=== PATIENT | male | born 1955 | race Caucasian/White ===

== ENCOUNTER 2017-09-02 09:17 | Emergency (ER) | payer OTHER ==
--- NOTE | 2017-09-02 09:42 | ER Document Report ---
ED Medical Screen (RME) - General Chief Complaint: Dizziness Stated Complaint: BLOOD IN STOOL Time Seen by Provider: 09/02/17 09:20 Notes: Patient is a 62-year-old male who presents to the emergency department today with complaints of blood in the stool intermittently for the last week with associated dizziness. Patient states the blood is bright red. Patient has a history of hemorrhoids. Patient states he has slight intermittent abdominal pain with this. Patient denies any change in his dizziness with position. Patient is not on any blood thinning medications. I have greeted and performed a rapid initial assessment of this patient. A comprehensive ED assessment and evaluation of the patient, analysis of test results, and completion of the medical decision making process will be conducted by additional ED providers. Review of systems: Positive for dizziness, blood in stool, and abdominal pain. Negative for change in dizziness with position or usage of blood thinners. Physical Exam: General: Alert, appears well. HEENT: Normocephalic. Atraumatic. PERRLA. Extraocular movements intact. Oropharynx clear. Neck: Supple. Cardiovascular: Regular rate and rhythm. Respiratory: No respiratory distress. Abdominal: Normal Inspection. No distension. Extremities: Moves all four extremities. Neurological: Normal cognition. AAOx4. Normal speech. Psychological: Normal affect. Normal Mood. Skin: Warm. Dry. Normal color. TRAVEL OUTSIDE OF THE [place] IN LAST 30 DAYS: No - Related Data Allergies/Adverse Reactions: No Known Allergies Allergy (Verified 09/02/17 09:19) Past Medical History - Social History Chew tobacco use (# tins/day): No Frequency of alcohol use: None Drug Abuse: None Renal/ Medical History: Denies: Hx Peritoneal Dialysis Physical Exam - Vital signs Vitals: Temp Pulse Resp BP Pulse Ox 98.4 F 88 20 162/80 H 97 09/02/17 09:21 09/02/17 09:21 09/02/17 09:21 09/02/17 09:21 09/02/17 09:21 Course - Vital Signs Vital signs: Temp Pulse Resp BP Pulse Ox 98.4 F 88 20 162/80 H 97 09/02/17 09:21 09/02/17 09:21 09/02/17 09:21 09/02/17 09:21 09/02/17 09:21 Scribe Documentation - Scribe Written by Gerri:: Gerri Mahajan, 09/02/2017 0942 acting as scribe for :: [place]
[2017-09-02 10:12] LABS: ABSOLUTE BASOPHILS # (AUTO) 0.1 10^3/uL (0.0-0.2); ABSOLUTE EOSINOPHILS # (AUTO) 0.2 10^3/uL (0.0-0.6); ABSOLUTE LYMPHOCYTES (AUTO) 2.3 10^3/uL (0.5-4.7); ABSOLUTE MONOCYTES (AUTO) 0.7 10^3/uL (0.1-1.4); ABSOLUTE NEUT (AUTO) 5.4 10^3/uL (1.7-8.2); BASOPHILS % (AUTO) 0.6 % (0-2); EOSINOPHILS % (AUTO) 2.3 % (0-6); HEMATOCRIT 44.6 % (37.9-51.0); HEMOGLOBIN 15.6 g/dL (13.5-17.0); LYMPHOCYTES % (AUTO) 26.7 % (13-45); MEAN CORPUSCULAR HEMOGLOBIN 32.1 pg (27.0-33.4); MEAN CORPUSCULAR HGB CONC 34.9 g/dL (32.0-36.0); MEAN CORPUSCULAR VOLUME 92 fl (80-97); MONOCYTES % (AUTO) 8.3 % (3-13); PLATELET COUNT 249 10^3/uL (150-450); RED BLOOD COUNT 4.85 10^6/uL (4.35-5.55); RED CELL DISTRIBUTION WIDTH 13.2 % (11.5-14.0); SEGMENTED NEUTROPHILS % (AUTO) 62.1 % (42-78); TOTAL CELLS COUNTED % (AUTO) 100 %; WHITE BLOOD COUNT 8.6 10^3/uL (4.0-10.5)
[2017-09-02 10:25] LABS: ALANINE AMINOTRANSFERASE 50 U/L (21-72); ALBUMIN 4.5 g/dL (3.5-5.0); ALKALINE PHOSPHATASE 89 U/L (38-126); ANION GAP 13 (5-19); ASPARTATE AMINO TRANSFERASE 24 U/L (17-59); BILIRUBIN,DIRECT 0.3 mg/dL (0.0-0.4); BILIRUBIN,TOTAL 1.6 mg/dL (0.2-1.3); BLOOD UREA NITROGEN 13 mg/dL (7-20); CALCIUM 9.9 mg/dL (8.4-10.2); CARBON DIOXIDE 25 mmol/L (22-30); CHLORIDE 107 mmol/L (98-107); GLUCOSE 91 mg/dL (75-110); POTASSIUM 3.6 mmol/L (3.6-5.0); SODIUM 144.9 mmol/L (137-145); TOTAL PROTEIN 7.3 g/dL (6.3-8.2)
[2017-09-02 11:11] VITALS: BP 150/92
--- NOTE | 2017-09-02 12:01 | ER Document Report ---
ED General - General Chief Complaint: Dizziness Stated Complaint: BLOOD IN STOOL Time Seen by Provider: 09/02/17 09:20 Notes: 62-year-old male to emerge plane of bright red blood per rectum. States he has been having increased amounts of blood in his stool. Was a little dizzy but not at this time. Denies any abdominal pain. Was seen one prior time and was told that he had hemorrhoids. Has not been able to see a registered nurse post partum or surgeon due to financial issues. TRAVEL OUTSIDE OF THE [place] IN LAST 30 DAYS: No - Related Data Allergies/Adverse Reactions: No Known Allergies Allergy (Verified 09/02/17 09:19) Past Medical History - General Information source: Patient - Social History Smoking Status: Never Smoker Chew tobacco use (# tins/day): No Frequency of alcohol use: None Drug Abuse: None Lives with: Spouse/Significant other Family History: Reviewed & Not Pertinent Patient has suicidal ideation: No Patient has homicidal ideation: No - Medical History Medical History: Negative Renal/ Medical History: Denies: Hx Peritoneal Dialysis Surgical Hx: Other Past Surgical History: Reports: Hx Tonsillectomy Review of Systems - Review of Systems Constitutional: No symptoms reported EENT: No symptoms reported Cardiovascular: Dizziness. denies: Chest pain, Palpitations, Heart racing Respiratory: No symptoms reported Gastrointestinal: Rectal bleeding. denies: Abdominal pain, Diarrhea, Nausea, Vomiting Genitourinary: No symptoms reported Male Genitourinary: No symptoms reported Musculoskeletal: No symptoms reported Skin: No symptoms reported Hematologic/Lymphatic: No symptoms reported Neurological/Psychological: No symptoms reported Physical Exam - Vital signs Vitals: Temp Pulse Resp BP Pulse Ox 98.4 F 88 20 162/80 H 97 09/02/17 09:21 09/02/17 09:21 09/02/17 09:21 09/02/17 09:21 09/02/17 09:21 Interpretation: Normal - General General appearance: Appears well, Alert - HEENT Head: Normocephalic, Atraumatic Eyes: Normal Pupils: PERRL - Respiratory Respiratory status: No respiratory distress Chest status: Nontender Breath sounds: Normal Chest palpation: Normal - Cardiovascular Rhythm: Regular Heart sounds: Normal auscultation Murmur: No - Abdominal Inspection: Normal Distension: No distension Bowel sounds: Normal Tenderness: Nontender Organomegaly: No organomegaly - Rectal Tenderness: No Stool: Heme positive Hemorrhoids: No: External, Anal fissure, Mass Prostate: Normal - Back Back: Normal, Nontender - Extremities General upper extremity: Normal inspection, Nontender, Normal color, Normal ROM , Normal temperature General lower extremity: Normal inspection, Nontender, Normal color, Normal ROM , Normal temperature, Normal weight bearing. No: Chase's sign - Neurological Neuro grossly intact: Yes Cognition: Normal Orientation: AAOx4 Rowe Coma Scale Eye Opening: Spontaneous Raquel Coma Scale Verbal: Oriented Raquel Coma Scale Motor: Obeys Commands Rowe Coma Scale Total: 15 Speech: Normal Motor strength normal: LUE, RUE, LLE, RLE Sensory: Normal - Psychological Associated symptoms: Normal affect, Normal mood - Skin Skin Temperature: Warm Skin Moisture: Dry Skin Color: Normal Course - Re-evaluation Re-evalutation: 09/02/17 12:08 Patient has normal hemoglobin and hematocrit with occult positive stool with a negative rectal exam. Consult with Dr. Walker with gastroenterology. Patient needs colonoscopy which can be done at this time as an outpatient. Patient has limited financial resources. Having financial counselor speak with patient at this time. I have given him all the warning signs with worsening GI bleeding. Patient is to return immediately if he develops any dizziness, passing out, low blood pressure, worsening bleeding or any other concerns. Patient has been observed here for several hours and has been asymptomatic. 09/02/17 12:[address] Walker. He will try and follow patient up. I have given an order for outpatient endoscopies. Financial services are working with patient at this time to get him to care that he needs. 09/02/17 14:17 Laboratory 09/02/17 09/02/17 09/02/17 09:51 09:51 09:51 WBC 8.6 RBC 4.85 Hgb 15.6 Hct 44.6 MCV 92 MCH 32.1 MCHC 34.9 RDW 13.2 Plt Count 249 Seg Neutrophils % 62.1 Lymphocytes % 26.7 Monocytes % 8.3 Eosinophils % 2.3 Basophils % 0.6 Absolute Neutrophils 5.4 Absolute Lymphocytes 2.3 Absolute Monocytes 0.7 Absolute Eosinophils 0.2 Absolute Basophils 0.1 Sodium 144.9 Potassium 3.6 Chloride 107 Carbon Dioxide 25 Anion Gap 13 BUN 13 Creatinine 0.99 Est GFR ( Amer) > 60 Est GFR (Non-Af Amer) > 60 Glucose 91 Calcium 9.9 Total Bilirubin 1.6 H Direct Bilirubin 0.3 Neonat Total Bilirubin Not Reportable Neonat Direct Bilirubin Not Reportable Neonat Indirect Bili Not Reportable AST 24 ALT 50 Alkaline Phosphatase 89 Total Protein 7.3 Albumin 4.5 Stool Occult Blood Blood Type A POSITIVE Antibody Screen NEGATIVE 09/02/17 10:58 WBC RBC Hgb Hct MCV MCH MCHC RDW Plt Count Seg Neutrophils % Lymphocytes % Monocytes % Eosinophils % Basophils % Absolute Neutrophils Absolute Lymphocytes Absolute Monocytes Absolute Eosinophils Absolute Basophils Sodium Potassium Chloride Carbon Dioxide Anion Gap BUN Creatinine Est GFR ( Amer) Est GFR (Non-Af Amer) Glucose Calcium Total Bilirubin Direct Bilirubin Neonat Total Bilirubin Neonat Direct Bilirubin Neonat Indirect Bili AST ALT Alkaline Phosphatase Total Protein Albumin Stool Occult Blood POSITIVE Blood Type Antibody Screen - Vital Signs Vital signs: Temp Pulse Resp BP Pulse Ox 97.7 F 79 16 150/92 H 93 09/02/17 11:09 09/02/17 11:11 09/02/17 11:11 09/02/17 11:11 09/02/17 11:11 - Laboratory Result Diagrams: 09/02/17 09:51 09/02/17 09:51 Laboratory results interpreted by me: 09/02/17 09:51 Total Bilirubin 1.6 H Discharge - Discharge Clinical Impression: Rectal bleeding Condition: Good Disposition: HOME, SELF-CARE Instructions: Rectal Bleeding, Unclear Cause ([facility]) Additional Instructions: If you begin to develop worsening symptoms, worsening bleeding, dizziness, chest pain, low blood pressure or other concerns please return immediately. Please make appointments to follow-up with gastroenterology as advised. Forms: Follow-Up Outpatient Testing Referrals: KESHAWN ARAGON MD [ACTIVE STAFF] - Follow up in 3-5 days
--- NOTE | 2017-09-02 22:54 | EKG REPORT ---
SEVERITY:- OTHERWISE NORMAL ECG - SINUS RHYTHM LEFT AXIS DEVIATION : Confirmed by: Chon Dey 02-Sep-2017 22:53:46
== END 2017-09-02 12:31 | disposition home or self-care (01) ==
LOC: ER 09:17
DX: K62.5 Hemorrhage of anus and rectum (principal); R42 Dizziness and giddiness
CPT/HCPCS: 36415; 80053; 82272; 85025; 86850; 86900; 86901; 93005; 93010; 99284

== ENCOUNTER 2017-10-20 10:59 | Inpatient (IN) | payer OTHER ==
[2017-10-20] MEDS ORDERED: NORMAL SALINE 1000 ML 1,000 ML IV ONE (11:41)
--- NOTE | 2017-10-20 11:42 | ER Document Report ---
ED Medical Screen (RME) - General Chief Complaint: Abdominal Pain Stated Complaint: ABDOMINAL PAIN Time Seen by Provider: 10/20/17 11:39 Notes: 62 years old male presents today with 2 month history of rectal bleed, with gradual weakness to the point the last 24 hours feeling extremely weak and dizzy therefore presented to the ED. With diffuse lower abdominal discomfort/ pain. No nausea vomiting. Denies any dysuria frequency or urgency. Denies any constipation. Denies any other constitutional symptoms. He never had a colonoscopy done. He is adopted no family history. TRAVEL OUTSIDE OF THE [place] IN LAST 30 DAYS: No - Related Data Allergies/Adverse Reactions: No Known Allergies Allergy (Verified 10/20/17 11:03) Past Medical History Renal/ Medical History: Denies: Hx Peritoneal Dialysis Past Surgical History: Reports: Hx Tonsillectomy Physical Exam - Vital signs Vitals: Temp Pulse Resp BP Pulse Ox 98.1 F 98 18 125/81 96 10/20/17 11:06 10/20/17 11:06 10/20/17 11:06 10/20/17 11:06 10/20/17 11:06 Course - Vital Signs Vital signs: Temp Pulse Resp BP Pulse Ox 98.1 F 98 18 125/81 96 10/20/17 11:06 10/20/17 11:06 10/20/17 11:06 10/20/17 11:06 10/20/17 11:06
[2017-10-20 12:32] LABS: ABSOLUTE BASOPHILS # (AUTO) 0.1 10^3/uL (0.0-0.2); ABSOLUTE EOSINOPHILS # (AUTO) 0.4 10^3/uL (0.0-0.6); ABSOLUTE LYMPHOCYTES (AUTO) 1.1 10^3/uL (0.5-4.7); ABSOLUTE MONOCYTES (AUTO) 1.2 10^3/uL (0.1-1.4); BASOPHILS % (AUTO) 0.7 % (0-2); EOSINOPHILS % (AUTO) 4.1 % (0-6); HEMOGLOBIN 12.1 g/dL (13.5-17.0); LYMPHOCYTES % (AUTO) 10.8 % (13-45); MEAN CORPUSCULAR HEMOGLOBIN 30.2 pg (27.0-33.4); MEAN CORPUSCULAR HGB CONC 33.5 g/dL (32.0-36.0); MEAN CORPUSCULAR VOLUME 90 fl (80-97); MONOCYTES % (AUTO) 12.3 % (3-13); PLATELET COUNT 358 10^3/uL (150-450); RED BLOOD COUNT 3.99 10^6/uL (4.35-5.55); RED CELL DISTRIBUTION WIDTH 13.6 % (11.5-14.0); SEGMENTED NEUTROPHILS % (AUTO) 72.1 % (42-78); TOTAL CELLS COUNTED % (AUTO) 100 %; WHITE BLOOD COUNT 9.7 10^3/uL (4.0-10.5)
--- NOTE | 2017-10-20 13:00 | RADIOLOGY REPORT (SQ) ---
EXAM DESCRIPTION: ACUTE ABDOMEN SERIES COMPLETED DATE/TIME: 10/20/2017 12:37 pm REASON FOR STUDY: Abdominal pain COMPARISON: None. NUMBER OF VIEWS: Three views. TECHNIQUE: Frontal chest, supine abdomen and upright abdomen radiographic images acquired. LIMITATIONS: None. FINDINGS: CHEST: Calcified granuloma medial right upper lobe. Lungs are free of acute infiltrates. No pleural effusion. No pneumothorax. FREE AIR: None. No abnormal gas collections. BOWEL GAS PATTERN: Nonobstructive pattern. No dilated loops or air fluid levels. CALCIFICATIONS: No suspicious calcifications. HARDWARE: None in the abdomen. SOFT TISSUES: No gross mass or suggestion of organomegaly. BONES: No acute fracture. No worrisome bone lesions. OTHER: No other significant finding. IMPRESSION: NO RADIOGRAPHIC EVIDENCE FOR ACUTE ABDOMINAL DISEASE. TECHNICAL DOCUMENTATION: JOB ID: [id number] [employer]- All Rights Reserved Reading location - IP/workstation name: [email or web address]
[2017-10-20 16:06] LABS: ALANINE AMINOTRANSFERASE 59 U/L (21-72); ALBUMIN 3.4 g/dL (3.5-5.0); ALKALINE PHOSPHATASE 156 U/L (38-126); ANION GAP 14 (5-19); ASPARTATE AMINO TRANSFERASE 36 U/L (17-59); BILIRUBIN,DIRECT 0.6 mg/dL (0.0-0.4); BILIRUBIN,TOTAL 1.9 mg/dL (0.2-1.3); BLOOD UREA NITROGEN 12 mg/dL (7-20); CALCIUM 8.6 mg/dL (8.4-10.2); CARBON DIOXIDE 22 mmol/L (22-30); CHLORIDE 107 mmol/L (98-107); GLUCOSE 96 mg/dL (75-110); POTASSIUM 4.1 mmol/L (3.6-5.0); SODIUM 142.7 mmol/L (137-145); TOTAL PROTEIN 6.4 g/dL (6.3-8.2)
--- NOTE | 2017-10-20 16:21 | ER Document Report ---
ED GI/ - General Mode of Arrival: Ambulatory Information source: Patient TRAVEL OUTSIDE OF THE [place] IN LAST 30 DAYS: No <CAPRI OWENS - Last Filed: 10/20/17 19:02> <AMRKELL NEWMAN - Last Filed: 10/20/17 21:25> - General Chief Complaint: Abdominal Pain Stated Complaint: ABDOMINAL PAIN Time Seen by Provider: 10/20/17 11:39 Notes: 62-year-old male who presents to the emergency department today with complaints of rectal bleeding. Patient was seen here a few months ago for similar symptoms. At that time the patient was put in contact with social work to help pay for a colonoscopy. Patient states that unfortunately he has not yet had a colonoscopy. When he was here a few months ago his blood levels were normal. Patient states he has had intermittent rectal bleeding since then and has now had an increase in generalized weakness. (CAPRI OWENS) - Related Data Allergies/Adverse Reactions: No Known Allergies Allergy (Verified 10/20/17 11:03) Past Medical History - General Information source: Patient - Social History Smoking Status: Never Smoker Cigarette use (# per day): No Chew tobacco use (# tins/day): No Frequency of alcohol use: None Drug Abuse: None Lives with: Family Family History: Reviewed & Not Pertinent Patient has suicidal ideation: No Patient has homicidal ideation: No Renal/ Medical History: Denies: Hx Peritoneal Dialysis Past Surgical History: Reports: Hx Tonsillectomy <CAPRI OWENS - Last Filed: 10/20/17 19:02> Review of Systems - Review of Systems Constitutional: See HPI, Weakness EENT: No symptoms reported Cardiovascular: No symptoms reported Respiratory: No symptoms reported Gastrointestinal: See HPI, Rectal bleeding Genitourinary: No symptoms reported Male Genitourinary: No symptoms reported Musculoskeletal: No symptoms reported Skin: No symptoms reported, See HPI Hematologic/Lymphatic: No symptoms reported Neurological/Psychological: No symptoms reported -: Yes All other systems reviewed and negative <CAPRI OWENS - Last Filed: 10/20/17 19:02> Physical Exam <CAPRI OWENS - Last Filed: 10/20/17 19:02> <MARKELL NEWMAN - Last Filed: 10/20/17 21:25> - Vital signs Vitals: Temp Pulse Resp BP Pulse Ox 98.1 F 98 18 125/81 96 10/20/17 11:06 10/20/17 11:06 10/20/17 11:06 10/20/17 11:06 10/20/17 11:06 - Notes Notes: Physical Exam: General: Alert, appears well. HEENT: Normocephalic. Atraumatic. PERRL. Extraocular movements intact. Oropharynx clear. Neck: Supple. Non-tender. Respiratory: No respiratory distress. Clear and equal breath sounds bilaterally. Cardiovascular: Regular rate and rhythm. Abdominal: Normal Inspection. Non-tender. No distension. Resonant bowel sounds. Back: Non-tender. No deformity or step off. Extremities: Moves all four extremities. Upper extremities: Normal inspection. Normal ROM. Lower extremities: Normal inspection. No edema. Normal ROM. Neurological: Normal cognition. AAOx4. Normal speech. Psychological: Normal affect. Normal Mood. Skin: Warm. Dry. Normal color. (CAPRI OWENS) Course - Laboratory Result Diagrams: 10/20/17 12:16 10/20/17 15:33 <CAPRI OWENS - Last Filed: 10/20/17 19:02> - Laboratory Result Diagrams: 10/20/17 12:16 10/20/17 15:33 - Diagnostic Test Radiology reviewed: Image reviewed, Reports reviewed - Mild wall thickening in the sigmoid colon and rectum. <MARKELL NEWMAN - Last Filed: 10/20/17 21:25> - Vital Signs Vital signs: Temp Pulse Resp BP Pulse Ox 98.4 F 96 20 134/83 H 96 10/20/17 19:36 10/20/17 19:36 10/20/17 19:36 10/20/17 19:36 10/20/17 19:36 - Laboratory Laboratory results interpreted by ok: 10/20/17 10/20/17 12:16 15:33 RBC 3.99 L Hgb 12.1 L Hct 36.0 L Lymphocytes % 10.8 L Total Bilirubin 1.9 H Direct Bilirubin 0.6 H Alkaline Phosphatase 156 H Albumin 3.4 L Lipase 320.0 H Discharge <CAPRI OWENS - Last Filed: 10/20/17 19:02> - Discharge Admitting Provider: Hospitalist Unit Admitted: Telemetry <MARKELL NEWMAN - Last Filed: 10/20/17 21:25> - Discharge Clinical Impression: Rectal bleeding Anemia Qualifiers: Anemia type: unspecified type Qualified Code(s): D64.9 - Anemia, unspecified Condition: Stable Disposition: ADMITTED INPATIENT Scribe Attestation: 10/20/17 17:09 I personally performed the services described in the documentation, reviewed and edited the documentation which was dictated to the scribe in my presence, and it accurately records my words and actions. (MARKELL NEWMAN) Scribe Documentation - Scribe Written by Gerri:: Gerri Mahajan, 10/20/2017 194 acting as scribe for :: Irene <CAPRI OWENS - Last Filed: 10/20/17 19:02>
--- NOTE | 2017-10-20 19:28 | RADIOLOGY REPORT (SQ) ---
EXAM DESCRIPTION: CT ABD/PELVIS WITH IV ORAL COMPLETED DATE/TIME: 10/20/2017 7:12 pm REASON FOR STUDY: Chronic GI bleed, abdominal pain COMPARISON: None. TECHNIQUE: CT scan of the abdomen and pelvis performed using helical scanning technique with dynamic intravenous contrast injection. Oral contrast. Images reviewed with lung, soft tissue, and bone win dows. Reconstructed coronal and sagittal MPR images reviewed. Delayed images for evaluation of the ur inary system also acquired. All images stored on PACS. All CT scanners at this facility use dose modulation, iterative reconstruction, and/or weight based d osing when appropriate to reduce radiation dose to as low as reasonably achievable (ALARA). [facility]: Dose Right [facility]: CareDose [facility]: Dose Right [facility]: Teradose 4D [facility]: [place] CONTRAST TYPE AND DOSE: contrast/concentration: Isovue 350.00 mg/ml; Total Contrast Delivered: 86.0 ml; Total Saline Delivered: 42.0 ml RENAL FUNCTION: BUN 12 creatinine 1 RADIATION DOSE: CT Rad equipment meets quality standard of care and radiation dose reduction techniq ues were employed. CTDIvol: 10.1 - 14.3 mGy. DLP: 1273 mGy-cm.. LIMITATIONS: None. FINDINGS: LOWER CHEST: No significant findings. No nodules or infiltrates. LIVER: The liver is slightly hypoattenuating. No masses are present. SPLEEN: Normal size. No focal lesions. PANCREAS: No masses. No significant calcifications. No adjacent inflammation or peripancreatic fluid collections. Pancreatic duct not dilated. GALLBLADDER: No identified stones by CT criteria. No inflammatory changes to suggest cholecystitis. ADRENAL GLANDS: No significant masses or asymmetry. RIGHT KIDNEY AND URETER: No solid masses. No significant calcifications. No hydronephrosis or hyd roureter. LEFT KIDNEY AND URETER: No solid masses. No significant calcifications. No hydronephrosis or hydr oureter. AORTA AND VESSELS: No aneurysm. No dissection. Renal arteries, SMA, celiac without stenosis. RETROPERITONEUM: No retroperitoneal adenopathy, hemorrhage or masses. BOWEL AND PERITONEAL CAVITY: There appears to be mild wall thickening in the sigmoid colon and rectum . APPENDIX: Not identified. PELVIS: No mass. No free fluid. Normal bladder. ABDOMINAL WALL: No masses. No hernias. BONES: No significant or acute findings. OTHER: No other significant finding. IMPRESSION: 1. Mild fatty infiltration the liver. 2. Mild wall thickening in the sigmoid colon and rectum. Is there history of or clinical evidence o f inflammatory bowel disease? TECHNICAL DOCUMENTATION: JOB ID: [id number] Quality ID # [id number]: Final reports with documentation of one or more dose reduction techniques (e.g., Au tomated exposure control, adjustment of the mA and/or kV according to patient size, use of iterative reconstruction technique) 2010 [employer]- All Rights Reserved Reading location - IP/workstation name: [email or web address]
[2017-10-20] MEDS ORDERED: ACETAMINOPHEN 325 MG TABLET PO PRN (21:02)
[2017-10-20] MEDS ORDERED: DEXTROSE 40% GEL 15 GM TUBE PO PRN ×2 (21:02)
[2017-10-20] MEDS ORDERED: MAG HYDROX/AL HYDROX/SIMETH SUSP 30 ML UDCUP PO PRN (21:02)
[2017-10-20] MEDS ORDERED: DEXTROSE 50%-WATER 25 GM/50 ML DISP.SYRIN IV PRN ×2 (21:02)
[2017-10-20] MEDS ORDERED: GLUCAGON,HUMAN RECOMB 1 MG INJ SUBCUT PRN (21:02)
[2017-10-20] MEDS ORDERED: OXYCODONE-ACETAMINOPHEN 5-325 MG TABLET PO PRN (21:02)
[2017-10-20 22:03] LABS: HEMATOCRIT 34.4 % (37.9-51.0); HEMOGLOBIN 11.8 g/dL (13.5-17.0); MEAN CORPUSCULAR HGB CONC 34.3 g/dL (32.0-36.0); MEAN CORPUSCULAR VOLUME 90 fl (80-97); PLATELET COUNT 326 10^3/uL (150-450); RED BLOOD COUNT 3.81 10^6/uL (4.35-5.55); RED CELL DISTRIBUTION WIDTH 13.4 % (11.5-14.0); WHITE BLOOD COUNT 10.3 10^3/uL (4.0-10.5)
[2017-10-20] MEDS: PANTOPRAZOLE SODIUM 40 MG VIAL IV SCH (23:31)
[2017-10-20] MEDS: NORMAL SALINE 1000 ML 1,000 ML IV PRN (23:32)
--- NOTE | 2017-10-20 23:43 | PDOC H&P ---
History of Present Illness Admission Date/PCP: 10/20/17 20:40 Patient complains of: Rectal bleeding History of Present Illness: FLORIDA SHANNON is a 62 year old male with history of degenerative disc disease and chronic back pain who presented to the emergency room with acute onset of recurrent bright red bleeding per rectum which has been intermittent over the last couple months. His hemoglobin was 15.6 during an ER visit on 09/02/17 when he was advised to follow-up with Dr. Bowman however he did not. He admits to abdominal pain only with flatulence with bright red bleeding per rectum that occurred today with associated mild chills. He denies any melena, nausea or vomiting or heartburn. He denies any chest pain or dyspnea palpitations or headache or dizziness or blurred vision. No diarrhea. Upon arrival to the emergency room his blood pressure was 125/81 with a pulse of 98, respiratory rate of 18 and pulse oximetry 96% on room air. His labs are remarkable for mild anemia with hemoglobin and hematocrit of 12.1 and 36 and later on 11.8 and 34.4 comparable to previous levels and platelets where 326 and a serum lipase was 320 with alk phos 156 and albumin 3.4 with normal AST and ALT. Sodium was 142.7 with a potassium of 4.1, BUN of 12 and creatinine 0.96 with blood glucose of 96. Abdominal pelvic CT scan revealed mild thickening of the wall of the sigmoid colon and rectum. The patient will be admitted to a telemetry bed for further evaluation and management. Past Medical History Past Medical History: Degenerative disc disease with chronic back pain Endocrine Medical History: Reports: Diabetes Mellitus Type 2 Past Surgical History Past Surgical History: Reports: Tonsillectomy Social History Lives with: Family Smoking Status: Never Smoker Frequency of Alcohol Use: None Hx Recreational Drug Use: No Family History Family History: The patient is adopted Parental Family History Reviewed: No - The patient is adopted Children Family History Reviewed: NA Sibling(s) Family History Reviewed.: NA Medication/Allergy Home Medications: Cyclobenzaprine HCl [Flexeril 10 mg Tablet] 10 mg PO Q8 10/20/17 Meloxicam [Mobic] 15 mg PO DAILY 10/20/17 Allergies/Adverse Reactions: No Known Allergies Allergy (Verified 10/20/17 11:03) Review of Systems Review of Systems: As per history of present illness. All pertinent systems were reviewed above. Constitutional, HEENT, cardiovascular, respiratory, GI, , musculoskeletal, neuro, psychiatric, endocrine, integumentary and hematologic systems were reviewed and are otherwise negative/unremarkable except for positive findings mentioned above in the HPI. Physical Exam Vital Signs: Temp Pulse Resp BP Pulse Ox 98.4 F 96 20 134/83 H 96 10/20/17 19:36 10/20/17 19:36 10/20/17 19:36 10/20/17 19:36 10/20/17 19:36 Exam: Generally: Very pleasant elderly male in no acute distress. Vital signs-as listed Head - atraumatic, normocephalic. Pupils - equal, round and reactive to light and accommodation. Extraocular movements are intact. No scleral icterus. Mild conjunctival pallor. Oropharynx - moist mucous membranes and tongue. No pharyngeal erythema or exudate. Neck - supple. No JVD. Carotid pulses 2+ bilaterally. No carotid bruits. No palpable thyromegaly or lymphadenopathy. Cardiovascular - regular rate and rhythm. Normal S1 and S2. No murmurs, gallops or rubs. Lungs - clear to auscultation bilaterally. Abdomen - soft and nontender. Positive bowel sounds. No palpable organomegaly or masses. Extremities - no pitting edema, clubbing or cyanosis. Neuro - grossly non-focal. Skin - no rashes. and rectal exam - deferred. Results Laboratory Results: 10/20/17 21:50 10/20/17 21:50 WBC 10.3 RBC 3.81 L Hgb 11.8 L Hct 34.4 L MCV 90 MCH 31.0 MCHC 34.3 RDW 13.4 Plt Count 326 Impressions: Acute Abdomen Series 10/20/17 11:40 IMPRESSION: NO RADIOGRAPHIC EVIDENCE FOR ACUTE ABDOMINAL DISEASE. Abdomen/Pelvis CT 10/20/17 16:19 IMPRESSION: 1. Mild fatty infiltration the liver. 2. Mild wall thickening in the sigmoid colon and rectum. Is there history of or clinical evidence of inflammatory bowel disease? Assessment & Plan - Diagnosis (1) Rectal bleeding Is this a current diagnosis for this admission?: Yes Plan: The patient will be admitted to a telemetry bed. Will follow serial hemoglobin and hematocrit levels. A GI consultation to Dr. Thurman will be obtained in a.m. We will place him on PPI therapy for now (2) Acute blood loss anemia Is this a current diagnosis for this admission?: Yes Plan: At this time he does not need packed RBC transfusion especially that the H&H have been relatively stable. We will continue monitoring as mentioned above. (3) Elevated lipase Is this a current diagnosis for this admission?: Yes Plan: This could be related to his mild sigmoid colitis and his GI bleeding. Repeat serum lipase in a.m. The patient will be n.p.o. (4) Elevated LFTs Is this a current diagnosis for this admission?: Yes Plan: Given his elevated lipase levels feel we will obtain right upper quadrant ultrasound (5) Chronic back pain Is this a current diagnosis for this admission?: Yes Plan: No current worsening. We will have to stop his meloxicam given his GI bleeding. (6) DVT prophylaxis Is this a current diagnosis for this admission?: Yes Plan: Medical prophylaxis currently contraindicated due to GI bleeding. We will place him on a SCDs. GI prophylaxis with PPI therapy as mentioned above - Plan Summary Plan Summary: The plan of care was discussed in details with the patient. I answered all questions. The patient agreed to proceed with the above-mentioned plan. The patient is presumably full code. This note was created by [employer] software and may contain typo errors that may have not been proofread.
[2017-10-21] MEDS ORDERED: CIPROFLOXACIN 400 MG/D5W RTU 400 MG/200 ML RTUPB IV ONE (02:00)
[2017-10-21] MEDS: METRONIDAZOLE 500 MG/NS RTU 500 MG/100 ML RTUPB IV SCH ×3 (02:57→17:59)
[2017-10-21 04:25] LABS: ANION GAP 9 (5-19); BLOOD UREA NITROGEN 10 mg/dL (7-20); CALCIUM 7.7 mg/dL (8.4-10.2); CARBON DIOXIDE 24 mmol/L (22-30); CHLORIDE 106 mmol/L (98-107); GLUCOSE 106 mg/dL (75-110); POTASSIUM 3.4 mmol/L (3.6-5.0); SODIUM 139.1 mmol/L (137-145)
[2017-10-21 04:48] LABS: ABSOLUTE EOSINOPHILS # (AUTO) 0.1 10^3/uL (0.0-0.6); ABSOLUTE LYMPHOCYTES (AUTO) 0.8 10^3/uL (0.5-4.7); ABSOLUTE MONOCYTES (AUTO) 1.4 10^3/uL (0.1-1.4); ABSOLUTE NEUT (AUTO) 9.1 10^3/uL (1.7-8.2); BASOPHILS % (AUTO) 0.4 % (0-2); EOSINOPHILS % (AUTO) 0.9 % (0-6); HEMATOCRIT 31.2 % (37.9-51.0); HEMOGLOBIN 10.8 g/dL (13.5-17.0); MEAN CORPUSCULAR HEMOGLOBIN 30.8 pg (27.0-33.4); MEAN CORPUSCULAR HGB CONC 34.5 g/dL (32.0-36.0); MEAN CORPUSCULAR VOLUME 89 fl (80-97); MONOCYTES % (AUTO) 12.4 % (3-13); PLATELET COUNT 284 10^3/uL (150-450); RED CELL DISTRIBUTION WIDTH 13.3 % (11.5-14.0); SEGMENTED NEUTROPHILS % (AUTO) 79.3 % (42-78); TOTAL CELLS COUNTED % (AUTO) 100 %; WHITE BLOOD COUNT 11.5 10^3/uL (4.0-10.5)
--- NOTE | 2017-10-21 09:08 | PDOC CONSULTATION ---
Consultation Consult Date: 10/21/17 Attending physician:: KESHAWN ARAGON Consult reason:: abnormal CT scan. rectal bleeding. acute blood loss History of Present Illness Admission Date/PCP: 10/20/17 20:40 History of Present Illness: [place]OR[place] SHANNON is a 62 year old male patient presented to ED had a previous presentation 2 months ago stable at that time had rectal bleeding was advised to follow up with GI did not make appt now similar presentation has had abnormal CT scan admitted under the hospitalist service patient will need colonoscopy Past Medical History Cardiac Medical History: Reports: Coronary Artery Disease - Status post PCI and 11 stents Endocrine Medical History: Reports: Diabetes Mellitus Type 2 Past Surgical History Past Surgical History: Reports: Tonsillectomy Social History Lives with: Family Smoking Status: Never Smoker Frequency of Alcohol Use: None Hx Recreational Drug Use: No Family History Family History: Reviewed & Not Pertinent Parental Family History Reviewed: Yes Children Family History Reviewed: Unknown Sibling(s) Family History Reviewed.: Unknown Medication/Allergy Home Medications: Cyclobenzaprine HCl [Flexeril 10 mg Tablet] 10 mg PO Q8 10/20/17 Meloxicam [Mobic] 15 mg PO DAILY 10/20/17 Allergies/Adverse Reactions: No Known Allergies Allergy (Verified 10/20/17 11:03) Review of Systems Constitutional: ABSENT: fever(s), headache(s), night sweats, weakness Eyes: ABSENT: visual disturbances Ears: ABSENT: hearing changes Nose, Mouth, and Throat: ABSENT: mouth pain, sore throat Cardiovascular: ABSENT: edema, orthropnea Respiratory: ABSENT: dyspnea, hemoptysis Gastrointestinal: PRESENT: hematochezia. ABSENT: hematemesis Genitourinary: ABSENT: dysuria, hematuria Musculoskeletal: ABSENT: deformity, joint swelling Integumentary: ABSENT: lesions, pruritus Neurological: ABSENT: syncope, tingling, tremor(s), vertigo Endocrine: ABSENT: polydipsia, polyphagia, polyuria Hematologic/Lymphatic: ABSENT: easy bruising Physical Exam Vital Signs: Temp Pulse Resp BP Pulse Ox 98.6 F 96 20 134/83 H 96 10/21/17 01:57 10/20/17 19:36 10/20/17 19:36 10/20/17 19:36 10/20/17 19:36 Intake & Output 10/20/17 10/21/17 10/22/17 06:59 06:59 06:59 Intake Total 597 Balance 597 General appearance: PRESENT: no acute distress, well-developed, well-nourished Head exam: PRESENT: atraumatic, normocephalic Eye exam: PRESENT: EOMI, PERRLA. ABSENT: nystagmus, periorbital swelling, scleral icterus Mouth exam: PRESENT: moist, neck supple Throat exam: ABSENT: tonsillar exudate, tonsillogmegaly Neck exam: ABSENT: meningismus, tenderness, thyromegaly Respiratory exam: PRESENT: symmetrical, unlabored. ABSENT: tachypnea, wheezes Cardiovascular exam: PRESENT: RRR, +S1, +S2 GI/Abdominal exam: PRESENT: soft. ABSENT: rebound, rigid, tenderness Extremities exam: ABSENT: joint swelling Musculoskeletal exam: PRESENT: full ROM Neurological exam: PRESENT: alert, oriented to time, oriented to situation Focused psych exam: ABSENT: restlessness Skin exam: PRESENT: normal color. ABSENT: mottled, urticaria, vesicles Results Laboratory Results: 10/21/17 04:25 10/21/17 04:00 10/20/17 10/21/17 10/21/17 21:50 04:00 04:00 WBC 10.3 Cancelled RBC 3.81 L Cancelled Hgb 11.8 L Cancelled Hct 34.4 L Cancelled MCV 90 Cancelled MCH 31.0 Cancelled MCHC 34.3 Cancelled RDW 13.4 Cancelled Plt Count 326 Cancelled Seg Neutrophils % Cancelled Lymphocytes % Cancelled Monocytes % Cancelled Eosinophils % Cancelled Basophils % Cancelled Absolute Neutrophils Cancelled Absolute Lymphocytes Cancelled Absolute Monocytes Cancelled Absolute Eosinophils Cancelled Absolute Basophils Cancelled Sodium 139.1 Potassium 3.4 L Chloride 106 Carbon Dioxide 24 Anion Gap 9 BUN 10 Creatinine 1.01 Est GFR ( Amer) > 60 Est GFR (Non-Af Amer) > 60 Glucose 106 Calcium 7.7 L Stool Occult Blood 10/21/17 10/21/17 04:25 04:55 WBC 11.5 H RBC 3.50 L Hgb 10.8 L Hct 31.2 L MCV 89 MCH 30.8 MCHC 34.5 RDW 13.3 Plt Count 284 Seg Neutrophils % 79.3 H Lymphocytes % 7.0 L Monocytes % 12.4 Eosinophils % 0.9 Basophils % 0.4 Absolute Neutrophils 9.1 H Absolute Lymphocytes 0.8 Absolute Monocytes 1.4 Absolute Eosinophils 0.1 Absolute Basophils 0.0 Sodium Potassium Chloride Carbon Dioxide Anion Gap BUN Creatinine Est GFR ( Amer) Est GFR (Non-Af Amer) Glucose Calcium Stool Occult Blood POSITIVE Impressions: Acute Abdomen Series 10/20/17 11:40 IMPRESSION: NO RADIOGRAPHIC EVIDENCE FOR ACUTE ABDOMINAL DISEASE. Abdomen/Pelvis CT 10/20/17 16:19 IMPRESSION: 1. Mild fatty infiltration the liver. 2. Mild wall thickening in the sigmoid colon and rectum. Is there history of or clinical evidence of inflammatory bowel disease? Assessment & Plan - Diagnosis (1) Abnormal CT scan, colon Plan: thickening in the sigmoid and rectum ? colitis will need colonoscopy Risks, benefits and alternatives are discussed with the patient further recommendations to follow (2) Acute blood loss anemia Is this a current diagnosis for this admission?: Yes Plan: could be due to bleeding, although a chronic anemia may be co-existing transfuse as necessary (3) Rectal bleeding Is this a current diagnosis for this admission?: Yes Plan: will need evaluation of cause further recommendations to follow - Time Time Spent: 50 to 70 Minutes
[2017-10-21 11:42] LABS: HEMOGLOBIN 10.5 g/dL (13.5-17.0); MEAN CORPUSCULAR HEMOGLOBIN 31.3 pg (27.0-33.4); MEAN CORPUSCULAR VOLUME 89 fl (80-97); PLATELET COUNT 294 10^3/uL (150-450); RED BLOOD COUNT 3.36 10^6/uL (4.35-5.55); RED CELL DISTRIBUTION WIDTH 13.2 % (11.5-14.0); WHITE BLOOD COUNT 10.7 10^3/uL (4.0-10.5)
[2017-10-21] MEDS: CIPROFLOXACIN 400 MG/D5W RTU 400 MG/200 ML RTUPB IV SCH ×2 (11:47→21:28)
[2017-10-21] MEDS: PANTOPRAZOLE SODIUM 40 MG VIAL IV SCH ×2 (13:53→21:28)
[2017-10-21 16:39] LABS: HEMATOCRIT 29.6 % (37.9-51.0); HEMOGLOBIN 10.3 g/dL (13.5-17.0); MEAN CORPUSCULAR HEMOGLOBIN 31.2 pg (27.0-33.4); MEAN CORPUSCULAR HGB CONC 34.9 g/dL (32.0-36.0); MEAN CORPUSCULAR VOLUME 90 fl (80-97); PLATELET COUNT 290 10^3/uL (150-450); RED BLOOD COUNT 3.31 10^6/uL (4.35-5.55); RED CELL DISTRIBUTION WIDTH 13.3 % (11.5-14.0); WHITE BLOOD COUNT 8.9 10^3/uL (4.0-10.5)
[2017-10-21] MEDS: NORMAL SALINE 1000 ML 1,000 ML IV PRN (16:51)
--- NOTE | 2017-10-21 18:00 | RADIOLOGY REPORT (SQ) ---
EXAM DESCRIPTION: U/S ABDOMEN LIMITED W/O DOP COMPLETED DATE/TIME: 10/21/2017 5:51 pm REASON FOR STUDY: ELEVATED LFTS AND LIPASE (LIVER, gb , pancreas) COMPARISON: CT dated 10/20/2017. TECHNIQUE: Dynamic and static grayscale images acquired of the right upper quadrant and recorded on PACS. Additional selected color Doppler and spectral images recorded. LIMITATIONS: Study limited due to acoustical interference from fat or from air in the bowel. FINDINGS: PANCREAS: Obscured. LIVER: Echotexture is coarse with increased echogenicity consistent with fatty infiltration. No mass es. LIVER VASCULATURE: Normal directional flow of the main portal vein and hepatic veins. GALLBLADDER: No stones. Normal wall thickness. No pericholecystic fluid. ULTRASOUND-DETECTED SAUNDERS'S SIGN: Negative. INTRAHEPATIC DUCTS AND COMMON DUCT: CBD and intrahepatic ducts normal caliber. No filling defects. INFERIOR VENA CAVA: Normal flow. AORTA: Partially obscured. RIGHT KIDNEY: Normal size. Normal echogenicity. No solid or suspicious masses. No hydronephros is. No calcifications. PERITONEAL CAVITY AND RIGHT PLEURAL SPACE: No ascites or effusions. OTHER: No other significant finding. IMPRESSION: FATTY LIVER. PANCREAS AND ABDOMINAL AORTA OBSCURED. OTHERWISE NORMAL RIGHT UPPER QUADRAN T ULTRASOUND. TECHNICAL DOCUMENTATION: JOB ID: [id number] [employer]- All Rights Reserved Reading location - IP/workstation name: [email or web address]
--- NOTE | 2017-10-21 18:55 | PDOC PROGRESS REPORT ---
Subjective Progress Note for:: 10/21/17 Subjective:: As any abdominal pain nausea vomiting. He is not sure if he is still having bloody bowel movement Reason For Visit: GI BLEEDING Physical Exam Vital Signs: Temp Pulse Resp BP Pulse Ox 98.7 F 83 16 107/68 95 10/21/17 16:08 10/21/17 16:59 10/21/17 16:08 10/21/17 16:08 10/21/17 16:08 Intake & Output 10/20/17 10/21/17 10/22/17 06:59 06:59 06:59 Intake Total 597 903 Balance 597 903 Weight 80 kg General appearance: PRESENT: no acute distress, well-developed, well-nourished Head exam: PRESENT: atraumatic, normocephalic Eye exam: PRESENT: conjunctiva pink, EOMI, PERRLA. ABSENT: scleral icterus Ear exam: PRESENT: normal external ear exam Mouth exam: PRESENT: moist, tongue midline Neck exam: ABSENT: carotid bruit, JVD, lymphadenopathy, thyromegaly Respiratory exam: PRESENT: clear to auscultation chaka. ABSENT: rales, rhonchi, wheezes Cardiovascular exam: PRESENT: RRR. ABSENT: diastolic murmur, rubs, systolic murmur Pulses: PRESENT: normal dorsalis pedis pul Vascular exam: PRESENT: normal capillary refill GI/Abdominal exam: PRESENT: normal bowel sounds, soft. ABSENT: distended, guarding, mass, organolmegaly, rebound, tenderness Rectal exam: PRESENT: deferred Extremities exam: PRESENT: full ROM. ABSENT: calf tenderness, clubbing, pedal edema Neurological exam: PRESENT: alert, awake, oriented to person, oriented to place , oriented to time, oriented to situation, CN II-XII grossly intact. ABSENT: motor sensory deficit Psychiatric exam: PRESENT: appropriate affect, normal mood. ABSENT: homicidal ideation, suicidal ideation Skin exam: PRESENT: dry, intact, warm. ABSENT: cyanosis, rash Results Laboratory Results: 10/21/17 16:25 10/21/17 04:00 10/20/17 10/21/17 10/21/17 21:50 04:00 04:00 WBC 10.3 Cancelled RBC 3.81 L Cancelled Hgb 11.8 L Cancelled Hct 34.4 L Cancelled MCV 90 Cancelled MCH 31.0 Cancelled MCHC 34.3 Cancelled RDW 13.4 Cancelled Plt Count 326 Cancelled Seg Neutrophils % Cancelled Lymphocytes % Cancelled Monocytes % Cancelled Eosinophils % Cancelled Basophils % Cancelled Absolute Neutrophils Cancelled Absolute Lymphocytes Cancelled Absolute Monocytes Cancelled Absolute Eosinophils Cancelled Absolute Basophils Cancelled Sodium 139.1 Potassium 3.4 L Chloride 106 Carbon Dioxide 24 Anion Gap 9 BUN 10 Creatinine 1.01 Est GFR ( Amer) > 60 Est GFR (Non-Af Amer) > 60 Glucose 106 Calcium 7.7 L Stool Occult Blood 10/21/17 10/21/17 10/21/17 04:25 04:55 11:01 WBC 11.5 H 10.7 H RBC 3.50 L 3.36 L Hgb 10.8 L 10.5 L Hct 31.2 L 30.0 L MCV 89 89 MCH 30.8 31.3 MCHC 34.5 35.0 RDW 13.3 13.2 Plt Count 284 294 Seg Neutrophils % 79.3 H Lymphocytes % 7.0 L Monocytes % 12.4 Eosinophils % 0.9 Basophils % 0.4 Absolute Neutrophils 9.1 H Absolute Lymphocytes 0.8 Absolute Monocytes 1.4 Absolute Eosinophils 0.1 Absolute Basophils 0.0 Sodium Potassium Chloride Carbon Dioxide Anion Gap BUN Creatinine Est GFR ( Amer) Est GFR (Non-Af Amer) Glucose Calcium Stool Occult Blood POSITIVE 10/21/17 16:25 WBC 8.9 RBC 3.31 L Hgb 10.3 L Hct 29.6 L MCV 90 MCH 31.2 MCHC 34.9 RDW 13.3 Plt Count 290 Seg Neutrophils % Lymphocytes % Monocytes % Eosinophils % Basophils % Absolute Neutrophils Absolute Lymphocytes Absolute Monocytes Absolute Eosinophils Absolute Basophils Sodium Potassium Chloride Carbon Dioxide Anion Gap BUN Creatinine Est GFR ( Amer) Est GFR (Non-Af Amer) Glucose Calcium Stool Occult Blood Impressions: Acute Abdomen Series 10/20/17 11:40 IMPRESSION: NO RADIOGRAPHIC EVIDENCE FOR ACUTE ABDOMINAL DISEASE. Abdomen/Pelvis CT 10/20/17 16:19 IMPRESSION: 1. Mild fatty infiltration the liver. 2. Mild wall thickening in the sigmoid colon and rectum. Is there history of or clinical evidence of inflammatory bowel disease? Assessment & Plan - Diagnosis (1) Abnormal CT scan, colon Is this a current diagnosis for this admission?: Yes Plan: Likely colitis. He will benefit from colonoscopy (2) Anemia Qualifiers: Anemia type: unspecified type Qualified Code(s): D64.9 - Anemia, unspecified Is this a current diagnosis for this admission?: Yes Plan: Hemoglobin has been relatively stable although trending down somewhat. There is no need for transfusion at this time (3) Elevated LFTs Is this a current diagnosis for this admission?: Yes (4) Rectal bleeding Is this a current diagnosis for this admission?: Yes Plan: Plan is for colonoscopy for further evaluation - Time Time Spent with patient: 15-24 minutes Medications reviewed and adjusted accordingly: Yes Anticipated discharge: Home Within: within 48 hours - Inpatient Certification Based on my medical assessment, after consideration of the patient's comorbidities, presenting symptoms, or acuity I expect that the services needed warrant INPATIENT care.: Yes Medical Necessity: Need Close Monitoring Due to Risk of Patient Decompensation, Risk of Complication if Not Cared For in Hospital
[2017-10-21] MEDS ORDERED: PEG 3350/NA SULF,BICARB,CL/KCL 4000 ML PO ONE (20:00)
[2017-10-22] MEDS: METRONIDAZOLE 500 MG/NS RTU 500 MG/100 ML RTUPB IV SCH ×3 (02:06→17:12)
[2017-10-22 06:34] LABS: ABSOLUTE EOSINOPHILS # (AUTO) 0.1 10^3/uL (0.0-0.6); ABSOLUTE LYMPHOCYTES (AUTO) 0.7 10^3/uL (0.5-4.7); ABSOLUTE MONOCYTES (AUTO) 1.3 10^3/uL (0.1-1.4); ABSOLUTE NEUT (AUTO) 6.4 10^3/uL (1.7-8.2); BASOPHILS % (AUTO) 0.5 % (0-2); EOSINOPHILS % (AUTO) 1.1 % (0-6); HEMATOCRIT 29.9 % (37.9-51.0); HEMOGLOBIN 10.4 g/dL (13.5-17.0); LYMPHOCYTES % (AUTO) 8.7 % (13-45); MEAN CORPUSCULAR HEMOGLOBIN 30.9 pg (27.0-33.4); MEAN CORPUSCULAR HGB CONC 34.9 g/dL (32.0-36.0); MEAN CORPUSCULAR VOLUME 88 fl (80-97); MONOCYTES % (AUTO) 15.5 % (3-13); PLATELET COUNT 281 10^3/uL (150-450); RED BLOOD COUNT 3.38 10^6/uL (4.35-5.55); RED CELL DISTRIBUTION WIDTH 13.5 % (11.5-14.0); SEGMENTED NEUTROPHILS % (AUTO) 74.2 % (42-78); TOTAL CELLS COUNTED % (AUTO) 100 %; WHITE BLOOD COUNT 8.6 10^3/uL (4.0-10.5)
[2017-10-22 06:55] LABS: ANION GAP 11 (5-19); BLOOD UREA NITROGEN 8 mg/dL (7-20); CALCIUM 8.1 mg/dL (8.4-10.2); CARBON DIOXIDE 22 mmol/L (22-30); CHLORIDE 106 mmol/L (98-107); GLUCOSE 93 mg/dL (75-110); POTASSIUM 3.4 mmol/L (3.6-5.0); SODIUM 138.8 mmol/L (137-145)
[2017-10-22] MEDS ORDERED: DIPHENHYDRAMINE HCL 50 MG/ML VIAL ONE (07:34)
[2017-10-22] MEDS ORDERED: ONDANSETRON HCL INJ/PF 4 MG/2 ML SDV ONE (07:34)
[2017-10-22] MEDS ORDERED: GLUCAGON,HUMAN RECOMB 1 MG INJ ONE (07:35)
[2017-10-22] MEDS ORDERED: NALOXONE HCL INJ/PF 0.4 MG/1 ML SDV ONE (07:35)
[2017-10-22] MEDS ORDERED: FLUMAZENIL INJ 0.5 MG/5 ML VIAL ONE (07:35)
[2017-10-22] MEDS ORDERED: EPINEPHRINE INJ 1 MG/10 ML DISP.SYRIN ONE (07:35)
[2017-10-22] MEDS: MIDAZOLAM 2 MG/2 ML INJ ONE ×2 (08:06→08:10)
[2017-10-22] MEDS: FENTANYL CITRATE INJ/PF 100 MCG/2 ML AMPUL ONE ×3 (08:08→08:14)
--- NOTE | 2017-10-22 08:43 | Operative Report ---
Operative Report DATE OF SURGERY: 10/22/17 Operative Report: The risks, benefits and alternatives of the procedure including risks of bleeding, perforation requiring surgery are explained to the patient in detail and informed consent is obtained. Patient is brought back to the endoscopy suite and placed in the left, lateral decubital position. Timeout was called. Conscious sedation medications are provided. A rectal examination is done which did not reveal any masses, tears or fissures. An Olympus videoscope was inserted into the patient's rectum. The scope was then carefully advanced all the way to the cecum. The cecum was identified by the usual anatomical landmarks including the ileocecal valve as well as the appendiceal office. Photodocumentation is obtained. The scope was sequentially pulled back via the various segments of the colon including the ascending colon, hepatic flexure, transverse colon, splenic flexure, descending colon and finally into the rectosigmoid portions of the colon. Retroflexion maneuvers performed. PREOPERATIVE DIAGNOSIS: Abnormal CT scan showing thickening of the sigmoid colon. Rectal bleeding POSTOPERATIVE DIAGNOSIS: Ulcerative colitis from 0 to approximately 50 cm consistent with ulcerative colitis status post biopsy. Colonoscopy completed to the cecum OPERATION: Colonoscopy with biopsy SURGEON: KESHAWN ARAGON ANESTHESIA: Moderate Sedation - 4 mg of Versed, 100 mcg of fentanyl. Conscious sedation monitoring time 30 minutes. TISSUE REMOVED OR ALTERED: As noted above. COMPLICATIONS: None. ESTIMATED BLOOD LOSS: None. INTRAOPERATIVE FINDINGS: As noted above. PROCEDURE: Patient tolerated the procedure well No immediate postprocedure complications are noted. Patient sent back to his room in good condition. Resume regular diet Resume regular activity level Resume medications. Stop mesalamine, 5 ASA compound. We will wait on biopsies Follow-up as outpatient
[2017-10-22] MEDS: CIPROFLOXACIN 400 MG/D5W RTU 400 MG/200 ML RTUPB IV SCH ×2 (09:19→21:13)
[2017-10-22] MEDS: PANTOPRAZOLE SODIUM 40 MG VIAL IV SCH (09:19)
[2017-10-22] MEDS: NORMAL SALINE 1000 ML 1,000 ML IV PRN (12:54)
[2017-10-22] MEDS ORDERED: POTASSIUM CHLORIDE 10 MEQ CAPSULE.ER PO ONE (13:00)
[2017-10-22] MEDS ORDERED: NORMAL SALINE 1000 ML 1,000 ML IV PRN (17:37)
--- NOTE | 2017-10-22 17:41 | PDOC PROGRESS REPORT ---
Subjective Progress Note for:: 10/22/17 Subjective:: Denies any abdominal pain nausea vomiting. He is still having bloody bowel movement however his H&H has been relatively stable. I went through the results of the colonoscopy with him and his again. Reason For Visit: GI BLEEDING Physical Exam Vital Signs: Temp Pulse Resp BP Pulse Ox 98.9 F 81 18 118/73 93 10/22/17 15:31 10/22/17 15:31 10/22/17 15:31 10/22/17 15:31 10/22/17 15:31 Intake & Output 10/21/17 10/22/17 10/23/17 06:59 06:59 06:59 Intake Total 597 1883 1809 Balance 597 1883 1809 Weight 81.8 kg General appearance: PRESENT: no acute distress Head exam: PRESENT: atraumatic, normocephalic Eye exam: PRESENT: conjunctiva pink, PERRLA. ABSENT: scleral icterus Ear exam: PRESENT: normal external ear exam Mouth exam: PRESENT: moist, tongue midline Neck exam: ABSENT: carotid bruit, JVD, lymphadenopathy, thyromegaly Respiratory exam: PRESENT: clear to auscultation chaka. ABSENT: rales, rhonchi, wheezes Cardiovascular exam: PRESENT: RRR. ABSENT: diastolic murmur, rubs, systolic murmur Pulses: PRESENT: normal dorsalis pedis pul Vascular exam: PRESENT: normal capillary refill GI/Abdominal exam: PRESENT: normal bowel sounds, soft. ABSENT: distended, guarding, mass, organolmegaly, rebound, tenderness Rectal exam: PRESENT: deferred Extremities exam: PRESENT: full ROM. ABSENT: calf tenderness, clubbing, pedal edema Neurological exam: PRESENT: alert, awake, oriented to person, oriented to place , oriented to time, oriented to situation, CN II-XII grossly intact. ABSENT: motor sensory deficit Psychiatric exam: PRESENT: appropriate affect, normal mood. ABSENT: homicidal ideation, suicidal ideation Skin exam: PRESENT: dry, intact, warm. ABSENT: cyanosis, rash Results Laboratory Results: 10/22/17 06:05 10/22/17 06:05 10/22/17 10/22/17 06:05 06:05 WBC 8.6 RBC 3.38 L Hgb 10.4 L Hct 29.9 L MCV 88 MCH 30.9 MCHC 34.9 RDW 13.5 Plt Count 281 Seg Neutrophils % 74.2 Lymphocytes % 8.7 L Monocytes % 15.5 H Eosinophils % 1.1 Basophils % 0.5 Absolute Neutrophils 6.4 Absolute Lymphocytes 0.7 Absolute Monocytes 1.3 Absolute Eosinophils 0.1 Absolute Basophils 0.0 Sodium 138.8 Potassium 3.4 L Chloride 106 Carbon Dioxide 22 Anion Gap 11 BUN 8 Creatinine 0.97 Est GFR ( Amer) > 60 Est GFR (Non-Af Amer) > 60 Glucose 93 Calcium 8.1 L Impressions: Acute Abdomen Series 10/20/17 11:40 IMPRESSION: NO RADIOGRAPHIC EVIDENCE FOR ACUTE ABDOMINAL DISEASE. Abdomen/Pelvis CT 10/20/17 16:19 IMPRESSION: 1. Mild fatty infiltration the liver. 2. Mild wall thickening in the sigmoid colon and rectum. Is there history of or clinical evidence of inflammatory bowel disease? Abdomen Ultrasound 10/21/17 00:00 IMPRESSION: FATTY LIVER. PANCREAS AND ABDOMINAL AORTA OBSCURED. OTHERWISE NORMAL RIGHT UPPER QUADRANT ULTRASOUND. Assessment & Plan - Diagnosis (1) Abnormal CT scan, colon Is this a current diagnosis for this admission?: Yes Plan: Likely colitis. He will follow up with GI as outpatient (2) Anemia Qualifiers: Anemia type: unspecified type Qualified Code(s): D64.9 - Anemia, unspecified Is this a current diagnosis for this admission?: Yes Plan: Hemoglobin is relatively stable however patient is to have a rectal bleeding. Will monitor H&H and bleeding and transfuse as needed (3) Elevated LFTs Is this a current diagnosis for this admission?: Yes (4) Rectal bleeding Is this a current diagnosis for this admission?: Yes (5) Ulcerative colitis Is this a current diagnosis for this admission?: Yes Plan: Biopsy report is still pending however colonoscopy findings are consistent with ulcerative colitis. Patient will follow up with GI as outpatient for further management - Time Time Spent with patient: 15-24 minutes Medications reviewed and adjusted accordingly: Yes Anticipated discharge: Home Within: within 24 hours - Inpatient Certification Based on my medical assessment, after consideration of the patient's comorbidities, presenting symptoms, or acuity I expect that the services needed warrant INPATIENT care.: Yes Medical Necessity: Need Close Monitoring Due to Risk of Patient Decompensation, Other - Monitor for bleeding
[2017-10-23] MEDS: METRONIDAZOLE 500 MG/NS RTU 500 MG/100 ML RTUPB IV SCH ×2 (01:14→09:34)
[2017-10-23 04:45] LABS: ABSOLUTE BASOPHILS # (AUTO) 0.1 10^3/uL (0.0-0.2); ABSOLUTE EOSINOPHILS # (AUTO) 0.3 10^3/uL (0.0-0.6); ABSOLUTE MONOCYTES (AUTO) 1.1 10^3/uL (0.1-1.4); ABSOLUTE NEUT (AUTO) 5.4 10^3/uL (1.7-8.2); BASOPHILS % (AUTO) 0.7 % (0-2); EOSINOPHILS % (AUTO) 4.1 % (0-6); HEMOGLOBIN 10.6 g/dL (13.5-17.0); LYMPHOCYTES % (AUTO) 12.3 % (13-45); MEAN CORPUSCULAR HEMOGLOBIN 30.7 pg (27.0-33.4); MEAN CORPUSCULAR HGB CONC 34.3 g/dL (32.0-36.0); MEAN CORPUSCULAR VOLUME 89 fl (80-97); MONOCYTES % (AUTO) 14.2 % (3-13); PLATELET COUNT 305 10^3/uL (150-450); RED BLOOD COUNT 3.47 10^6/uL (4.35-5.55); RED CELL DISTRIBUTION WIDTH 13.5 % (11.5-14.0); SEGMENTED NEUTROPHILS % (AUTO) 68.7 % (42-78); TOTAL CELLS COUNTED % (AUTO) 100 %; WHITE BLOOD COUNT 7.9 10^3/uL (4.0-10.5)
[2017-10-23 04:56] LABS: ANION GAP 10 (5-19); BLOOD UREA NITROGEN 5 mg/dL (7-20); CALCIUM 8.2 mg/dL (8.4-10.2); CARBON DIOXIDE 22 mmol/L (22-30); CHLORIDE 107 mmol/L (98-107); GLUCOSE 92 mg/dL (75-110); POTASSIUM 3.6 mmol/L (3.6-5.0); SODIUM 139.4 mmol/L (137-145)
--- NOTE | 2017-10-23 07:53 | Progress Note ---
Provider Note Provider Note: patient needs to be started on a 5ASA prior to discharge. Hospitalist to write orders
--- NOTE | 2017-10-23 10:46 | PDOC DISCHARGE SUMMARY ---
General - Admit/Disc Date/PCP Admission Date/Primary Care Provider: 10/20/17 20:40 Discharge Date: 10/23/17 - Discharge Diagnosis (1) Abnormal CT scan, colon Is this a current diagnosis for this admission?: Yes (2) Anemia Is this a current diagnosis for this admission?: Yes (3) Elevated LFTs Is this a current diagnosis for this admission?: Yes (4) Rectal bleeding Is this a current diagnosis for this admission?: Yes (5) Ulcerative colitis Is this a current diagnosis for this admission?: Yes - Additional Information Resuscitation Status: Full Code Discharge Diet: Regular Discharge Activity: Activity As Tolerated Prescriptions: Ciprofloxacin HCl [Cipro 500 mg Tablet] 500 mg PO BID #10 tablet Metronidazole [Flagyl 500 mg Tablet] 500 mg PO Q8 #14 tablet Sulfasalazine [Azulfidine 500 mg Tablet.] 500 mg PO QID #120 tablet. Home Medications: Cyclobenzaprine HCl [Flexeril 10 mg Tablet] 10 mg PO Q8 10/20/17 Ciprofloxacin HCl [Cipro 500 mg Tablet] 500 mg PO BID #10 tablet 10/23/17 Metronidazole [Flagyl 500 mg Tablet] 500 mg PO Q8 #14 tablet 10/23/17 Sulfasalazine [Azulfidine 500 mg Tablet.] 500 mg PO QID #120 tablet. History of Present Illness History of Present Illness: FLORIDA SHANNON is a 62 year old male FLORIDA SHANNON is a 62 year old male with history of degenerative disc disease and chronic back pain who presented to the emergency room with acute onset of recurrent bright red bleeding per rectum which has been intermittent over the last couple months. His hemoglobin was 15.6 during an ER visit on 09/02/17 when he was advised to follow-up with Dr. Bowman however he did not. He admits to abdominal pain only with flatulence with bright red bleeding per rectum that occurred today with associated mild chills. He denies any melena, nausea or vomiting or heartburn. He denies any chest pain or dyspnea palpitations or headache or dizziness or blurred vision. No diarrhea. Upon arrival to the emergency room his blood pressure was 125/81 with a pulse of 98, respiratory rate of 18 and pulse oximetry 96% on room air. His labs are remarkable for mild anemia with hemoglobin and hematocrit of 12.1 and 36 and later on 11.8 and 34.4 comparable to previous levels and platelets where 326 and a serum lipase was 320 with alk phos 156 and albumin 3.4 with normal AST and ALT. Sodium was 142.7 with a potassium of 4.1, BUN of 12 and creatinine 0.96 with blood glucose of 96. Abdominal pelvic CT scan revealed mild thickening of the wall of the sigmoid colon and rectum. Hospital Course Hospital Course: Patient admitted with rectal bleeding and abdominal pain. He apparently did have a copious amount of bleeding however his hemoglobin remained relatively stable and required no transfusion while in hospital. He was seen by the desktop publisher and had colonoscopy done with findings suspicious for ulcerative colitis. Biopsies were taken which is still pending. Abdominal CT had revealed mild thickening of the wall of the sigmoid colon and rectum. Patient was treated with IV ciprofloxacin and metronidazole while in hospital and will continue as outpatient to complete a course of about 10 days. He was also started on sulfasalazine. The plan is for him to follow-up with Dr. Thurman as outpatient for further evaluation and management. Physical Exam Vital Signs: Temp Pulse Resp BP Pulse Ox 98.5 F 95 14 123/77 99 10/23/17 08:04 10/23/17 08:04 10/23/17 08:04 10/23/17 08:04 10/23/17 08:04 Intake & Output 10/22/17 10/23/17 10/24/17 06:59 06:59 06:59 Intake Total 1883 2901 309 Balance 1883 2901 309 Weight 81.8 kg 81.7 kg General appearance: PRESENT: no acute distress, well-developed, well-nourished Head exam: PRESENT: atraumatic, normocephalic Eye exam: PRESENT: conjunctiva pink, EOMI, PERRLA. ABSENT: scleral icterus Ear exam: PRESENT: normal external ear exam Mouth exam: PRESENT: moist, tongue midline Neck exam: ABSENT: carotid bruit, JVD, lymphadenopathy, thyromegaly Respiratory exam: PRESENT: clear to auscultation chaka. ABSENT: rales, rhonchi, wheezes Cardiovascular exam: PRESENT: RRR. ABSENT: diastolic murmur, rubs, systolic murmur Pulses: PRESENT: normal dorsalis pedis pul Vascular exam: PRESENT: normal capillary refill GI/Abdominal exam: PRESENT: normal bowel sounds, soft. ABSENT: distended, guarding, mass, organolmegaly, rebound, tenderness Rectal exam: PRESENT: deferred Extremities exam: PRESENT: full ROM. ABSENT: calf tenderness, clubbing, pedal edema Neurological exam: PRESENT: alert, awake, oriented to person, oriented to place , oriented to time, oriented to situation, CN II-XII grossly intact. ABSENT: motor sensory deficit Psychiatric exam: PRESENT: appropriate affect, normal mood. ABSENT: homicidal ideation, suicidal ideation Skin exam: PRESENT: dry, intact, warm. ABSENT: cyanosis, rash Results Laboratory Results: 10/23/17 04:10 10/23/17 04:10 10/23/17 10/23/17 04:10 04:10 WBC 7.9 RBC 3.47 L Hgb 10.6 L Hct 31.0 L MCV 89 MCH 30.7 MCHC 34.3 RDW 13.5 Plt Count 305 Seg Neutrophils % 68.7 Lymphocytes % 12.3 L Monocytes % 14.2 H Eosinophils % 4.1 Basophils % 0.7 Absolute Neutrophils 5.4 Absolute Lymphocytes 1.0 Absolute Monocytes 1.1 Absolute Eosinophils 0.3 Absolute Basophils 0.1 Sodium 139.4 Potassium 3.6 Chloride 107 Carbon Dioxide 22 Anion Gap 10 BUN 5 L Creatinine 0.97 Est GFR ( Amer) > 60 Est GFR (Non-Af Amer) > 60 Glucose 92 Calcium 8.2 L Impressions: Acute Abdomen Series 10/20/17 11:40 IMPRESSION: NO RADIOGRAPHIC EVIDENCE FOR ACUTE ABDOMINAL DISEASE. Abdomen/Pelvis CT 10/20/17 16:19 IMPRESSION: 1. Mild fatty infiltration the liver. 2. Mild wall thickening in the sigmoid colon and rectum. Is there history of or clinical evidence of inflammatory bowel disease? Abdomen Ultrasound 10/21/17 00:00 IMPRESSION: FATTY LIVER. PANCREAS AND ABDOMINAL AORTA OBSCURED. OTHERWISE NORMAL RIGHT UPPER QUADRANT ULTRASOUND. Qualifiers - * PATIENT BEING DISCHARGED WITH ANY OF THE FOLLOWING DIAGNOSIS: No Plan Time Spent: Greater than 30 Minutes
[2017-10-23] MEDS: SULFASALAZINE 500 MG TABLET.DR PO SCH ×2 (10:54→14:05)
[2017-10-23] MEDS ORDERED: METRONIDAZOLE 500 MG TABLET PO SCH (14:00)
[2017-10-23 14:24] VITALS: BP 133/62
== END 2017-10-23 15:30 | disposition home or self-care (01) | DRG 378 ==
LOC: ER 10:59 → EH 20:40 → 5 10-21 12:31
PROVIDERS: ADMIT Family Medicine; ATTEND Family Medicine
PROC: 0DBG8ZX Excision of Left Large Intestine, Via Natural or Artificial Opening Endoscopic, Diagnostic (ICD-10-PCS; principal; 2017-10-22 08:00)
DX: K62.5 Hemorrhage of anus and rectum (principal); K51.90 Ulcerative colitis, unspecified, without complications; D62 Acute posthemorrhagic anemia; M51.36 Other intervertebral disc degeneration, lumbar region; K76.0 Fatty (change of) liver, not elsewhere classified; I25.10 Atherosclerotic heart disease of native coronary artery without angina pectoris; E11.9 Type 2 diabetes mellitus without complications; Z79.899 Other long term (current) drug therapy; I25.2 Old myocardial infarction; Z95.5 Presence of coronary angioplasty implant and graft
CPT/HCPCS: 36415; 45380; 74022; 74177; 76705; 80048; 80053; 82272; 83690; 84443; 85025; 85027; 88305; 96360; 96361; 99285; J0171; J0744; J1200; J1610; J2250; J2310; J2405; J3010; J3490; J7030; S0164

== ENCOUNTER → 2018-01-07 | Outpatient (CLI) | payer OTHER ==
[2018-01-07 11:23] LABS: ABSOLUTE EOSINOPHILS # (AUTO) 0.4 10^3/uL (0.0-0.6); ABSOLUTE LYMPHOCYTES (AUTO) 1.8 10^3/uL (0.5-4.7); ABSOLUTE MONOCYTES (AUTO) 1.1 10^3/uL (0.1-1.4); ABSOLUTE NEUT (AUTO) 5.4 10^3/uL (1.7-8.2); BASOPHILS % (AUTO) 0.4 % (0-2); EOSINOPHILS % (AUTO) 4.4 % (0-6); HEMATOCRIT 31.2 % (37.9-51.0); HEMOGLOBIN 10.3 g/dL (13.5-17.0); LYMPHOCYTES % (AUTO) 20.4 % (13-45); MEAN CORPUSCULAR HEMOGLOBIN 27.6 pg (27.0-33.4); MEAN CORPUSCULAR HGB CONC 32.9 g/dL (32.0-36.0); MEAN CORPUSCULAR VOLUME 84 fl (80-97); MONOCYTES % (AUTO) 12.6 % (3-13); PLATELET COUNT 472 10^3/uL (150-450); RED BLOOD COUNT 3.71 10^6/uL (4.35-5.55); RED CELL DISTRIBUTION WIDTH 17.1 % (11.5-14.0); SEGMENTED NEUTROPHILS % (AUTO) 62.2 % (42-78); TOTAL CELLS COUNTED % (AUTO) 100 %; WHITE BLOOD COUNT 8.7 10^3/uL (4.0-10.5)
[2018-01-07 11:42] LABS: ALANINE AMINOTRANSFERASE 20 U/L (21-72); ALBUMIN 2.9 g/dL (3.5-5.0); ALKALINE PHOSPHATASE 77 U/L (38-126); ASPARTATE AMINO TRANSFERASE 13 U/L (17-59); BILIRUBIN,DIRECT 0.2 mg/dL (0.0-0.4); BILIRUBIN,TOTAL 0.6 mg/dL (0.2-1.3); CHOLESTEROL 185.48 mg/dL (0-200); IRON 13.8 ug/dL (49-181); TOTAL PROTEIN 5.6 g/dL (6.3-8.2); TRIGLYCERIDES 146 mg/dL (<150); URIC ACID 4.8 mg/dL (3.5-8.5)
[2018-01-07 11:53] LABS: DIRECT LDL 133 mg/dL (<100)
== END ==
LOC: CCC 09:51
DX: D64.9 Anemia, unspecified (principal); K52.9 Noninfective gastroenteritis and colitis, unspecified
CPT/HCPCS: 36415; 80061; 80076; 82728; 83540; 84550; 85025

== ENCOUNTER → 2018-04-07 | Outpatient (CLI) | payer OTHER ==
[2018-04-07 15:53] LABS: ABSOLUTE BASOPHILS # (AUTO) 0.1 10^3/uL (0.0-0.2); ABSOLUTE EOSINOPHILS # (AUTO) 0.1 10^3/uL (0.0-0.6); ABSOLUTE LYMPHOCYTES (AUTO) 1.2 10^3/uL (0.5-4.7); ABSOLUTE MONOCYTES (AUTO) 0.7 10^3/uL (0.1-1.4); ABSOLUTE NEUT (AUTO) 6.5 10^3/uL (1.7-8.2); BASOPHILS % (AUTO) 0.9 % (0-2); EOSINOPHILS % (AUTO) 1.3 % (0-6); HEMATOCRIT 35.2 % (37.9-51.0); HEMOGLOBIN 11.3 g/dL (13.5-17.0); LYMPHOCYTES % (AUTO) 13.8 % (13-45); MEAN CORPUSCULAR HEMOGLOBIN 27.7 pg (27.0-33.4); MEAN CORPUSCULAR HGB CONC 32.1 g/dL (32.0-36.0); MEAN CORPUSCULAR VOLUME 86 fl (80-97); MONOCYTES % (AUTO) 8.2 % (3-13); PLATELET COUNT 440 10^3/uL (150-450); RED BLOOD COUNT 4.08 10^6/uL (4.35-5.55); RED CELL DISTRIBUTION WIDTH 21.9 % (11.5-14.0); SEGMENTED NEUTROPHILS % (AUTO) 75.8 % (42-78); TOTAL CELLS COUNTED % (AUTO) 100 %; WHITE BLOOD COUNT 8.5 10^3/uL (4.0-10.5)
== END ==
LOC: CCC 15:05
DX: D64.89 Other specified anemias (principal)
CPT/HCPCS: 36415; 82728; 85025